=== PATIENT | female | born 1960 | race Caucasian/White ===

== ENCOUNTER 2024-05-06 10:47 | Outpatient (AMB) | payer BC, SELFPAY ==
--- NOTE | 2024-05-06 11:26 | A.OFFVIS_ITS ---
Vital Signs 05/06/24 11:28 Height 5 ft 9 in Weight 264 lb 8.875 oz BMI 39.1 BP 118/64 Blood Pressure Location Lt brachial Position Sitting Pulse 59 Pulse Source Pulse Oximeter Pulse Oximetry (%) 98 Oxygen Delivery Method Room Air Intake Visit Reasons: PSA Intake Note: Patient presents today for psoriatic arthritis. She was externally referred by PCP, Merry Sanders MD. She has a rash on her skin she is concerned about on hands and arms. Allergies clams, oysters Allergy (Unknown, Uncoded 05/06/24 11:30) Hives Clindamycin HCl Allergy (Unknown, Uncoded 05/06/24 11:30) hives Medication List - Last Reconciled 05/06/24 by Tee Fishman MD albuterol sulfate 90 mcg/actuation 2 inhalations inhalation Q4-6H PRN atorvastatin 10 mg PO DAILY cholecalciferol (vitamin D3) 1,250 mcg PO QWEEK cyclobenzaprine 10 mg PO TID diphenhydramine HCl (Benadryl) 25 mg PO TID PRN fluocinolone 0.01% 1 appl topical BID folic acid 1 mg PO DAILY inhalational spacing device (Aerochamber Mechanical Vent) As directed ondansetron HCl 4 mg PO Q8H semaglutide (weight loss) (Wegovy) 0.25 mg subcut QWEEK HPI HPI PSA: Details: Hx Psoriatic arthritis dx by Dr. Chairez. She has uncontrolled psoriasis- Scalp and inverse PsO. Pain in multiple joints. She has seen deformities develop in hands. She has difficulty walking. She had two incidents of slipping at work May 2023 and October 2023. Hx meniscus repair and cortisone injections in left knee. uses Brace and cane to assist with ambulation. She denies having joint swelling at this time. Denies dactylitis, iritis, IBD, SI joint pain including childhood back pain. She has history of cervical spinal stenosis and lumbar spinal stenosis with degenerative joint disease affecting lumbar spine. Denies any recent i nfections. She was diagnosed with psoriatic arthritis 10 years ago and reports that she had more joint pain at that time. The cold weather exacerbates all over joint pain resulting in reduced function and mobility. She is experiencing right knee pain, which has been chronic since her incidence of slipping out work. She has iced her knee and has used NSAIDs to help control pain. She is complaining about easily bruising on her arms. [facility] Medical History (Updated 05/06/24 @ 23:45 by Tee Fishman MD) Vitamin D deficiency Vaccine counseling Situational anxiety Severe obesity Psoriatic arthritis Obstructive sleep apnea of adult Muscle cramps Morbid obesity Migraines Meningioma Leg cramps Latent tuberculosis Hypercholesterolemia Healthcare maintenance Headache Head injury without fracture of skull Fall Cervical strain Elevated blood pressure reading Asthma Review of Systems Const All systems reviewed & are unremarkable except as noted in HPI and below Physical Exam Vital Signs: Last Vital Signs Pulse 59 05/06/24 11:28 BP 118/64 05/06/24 11:28 Pulse Ox 98 05/06/24 11:28 Oxygen Delivery Method Room Air 05/06/24 11:28 BMI result Body Mass Index 39.1 Const General: cooperative and healthy appearing Nutritional Appearance: obese Resp Effort & Inspection: normal respiratory effort Auscultation: clear to auscultation bilaterally Cardio Rate: regular rate Rhythm: regular rhythm Heart sounds: S1 normal heart sound present and S2 normal heart sound present Skin Other: Scalp psoriasis present. Psoriatic lesion on external right ear present. Extrem Other: Tender right 2nd MCP. Tender right CMC. Squaring of bilateral CMCs. No synovitis present. Excoriation and bruising on dorsal hands bilateral. Bruising on bilateral arms with bandages present. Good range of motion of upper extremity Tender right knee along joint line. Knee flexion bilateral 90 degrees. Good range of motion. Nontender MTPs. No dactylitis present. Assessment & Plan Assessment & Plan (1) Psoriatic arthritis: Comment: History of psoriatic arthritis. At this time there is no clinical evidence of active inflammatory arthritis on exam. She has clinical evidence of osteoarthritis in her hands. Code(s): L40.50 - Arthropathic psoriasis, unspecified Category: Medical Plan: I will obtain x-ray to evaluate further for radiographic changes suggestive of inflammatory arthritis versus degenerative joint disease. Baseline labs also have been ordered. Patient prefers to have labs and x-rays done in [place] so she does not miss work. Avoid oral NSAIDs in setting of bruising. Okay to take Tylenol OTC 650 mg 1-2 tablets every 8 hours as needed for pain Return to clinic in 1 month (2) Knee pain: Comment: Chronic right knee pain since 06/06/2023. We will evaluate further for joint pathology with x-ray. Code(s): M25.569 - Pain in unspecified knee Category: Medical Qualifiers: Chronicity: chronic Laterality: right Qualified Code(s): M25.561 - Pain in right knee; G89.29 - Other chronic pain Plan: X-ray has been ordered. Patient prefers to have x-ray done in [place]. Continue to wear knee brace. Hinged brace prescribed. Avoid oral NSAIDs for pain control in setting of easily bruising. Okay to use Tylenol 650 mg 1-2 tablets every 8 hours as needed for pain (3) Bruising: Comment: She reports that she has had history of high platelet count. No history of any myeloproliferative disease. Code(s): T14.8XXA - Other injury of unspecified body region, initial encounter Category: Medical Plan: We will obtain CBC for baseline (4) Psoriasis: Comment: Chronic, uncontrolled scalp psoriasis and inverse psoriasis. She will benefit from Dermatology consultation for management. Code(s): L40.9 - Psoriasis, unspecified Category: Medical Plan: Dermatology referral placed Plan . Orders: Orders XR foot LT min 3V Today L40.50 - Arthropathic psoriasis, unspecified XR knee RT 2V Today M25.569 - Pain in unspecified knee Aspartate Amino Transferase Today L40.50 - Arthropathic psoriasis, unspecified, M25.569 - Pain in unspecified knee, T14.8XXA - Other injury of unspecified body region, initial encounter C Reactive Protein Today L40.50 - Arthropathic psoriasis, unspecified, M25.569 - Pain in unspecified knee, T14.8XXA - Other injury of unspecified body region, initial encounter Creatinine Today L40.50 - Arthropathic psoriasis, unspecified, M25.569 - Pain in unspecified knee, T14.8XXA - Other injury of unspecified body region, initial encounter Erythrocyte Sedimentation Rate Today L40.50 - Arthropathic psoriasis, unspecified, M25.569 - Pain in unspecified knee, T14.8XXA - Other injury of unspecified body region, initial encounter XR hand LT min 3V Today L40.50 - Arthropathic psoriasis, unspecified, M25.569 - Pain in unspecified knee XR hand RT min 3V Today L40.50 - Arthropathic psoriasis, unspecified, M25.569 - Pain in unspecified knee XR foot RT min 3V Today L40.50 - Arthropathic psoriasis, unspecified, M25.569 - Pain in unspecified knee Alanine Aminotransferase Today L40.50 - Arthropathic psoriasis, unspecified, M25.569 - Pain in unspecified knee, T14.8XXA - Other injury of unspecified body region, initial encounter Complete Blood Count Auto Diff Today L40.50 - Arthropathic psoriasis, unspe cified, M25.569 - Pain in unspecified knee, T14.8XXA - Other injury of unspecified body region, initial encounter Referrals Dermatology Referral L40.9 - Psoriasis, unspecified Medications: New leg brace As directed 1 ea 0RF G89.29 - Other chronic pain, M25.561 - Pain in right knee Coding Level of Care Code New Pt Level 4 (59052) Diagnoses Psoriatic arthritis L40.50 Chronic pain of right knee M25.561; G89.29 Chronicity: chronic Laterality: right Bruising T14.8XXA Psoriasis L40.9
[2024-05-06 11:28] VITALS: BP 118/64; PULSE 59; O2SAT 98; BMI 39.1
== END 2024-05-06 12:29 | disposition home or self-care (01) ==
PROVIDERS: PCP Internal Medicine; Visit Provider Internal Medicine Rheumatology
DX: L40.50 Arthropathic psoriasis, unspecified (principal); M25.561 Pain in right knee; G89.29 Other chronic pain; T14.8XXA Other injury of unspecified body region, initial encounter; L40.9 Psoriasis, unspecified
CPT/HCPCS: 99204

== ENCOUNTER 2024-06-24 10:35 | Outpatient (AMB) | payer BC, SELFPAY ==
[2024-06-24 10:37] VITALS: BP 120/72; PULSE 63; O2SAT 95; BMI 39.0
--- NOTE | 2024-06-24 10:37 | A.OFFVIS_ITS ---
Vital Signs 06/24/24 10:37 Height 5 ft 9 in Weight 264 lb 5.348 oz BMI 39.0 BP 120/72 Blood Pressure Location Rt brachial Position Sitting Pulse 63 Pulse Source Pulse Oximeter Pulse Oximetry (%) 95 Oxygen Delivery Method Room Air Intake Visit Reasons: Follow Up 1mo Intake Note: was not able to get brace but will be getting later today Allergies clams, oysters Allergy (Unknown, Uncoded 05/06/24 11:30) Hives Clindamycin HCl Allergy (Unknown, Uncoded 05/06/24 11:30) hives HPI HPI Follow Up 1mo: Details: Her knee pain is 3/10. She has been to physical therapy in the past without benefit. She is tolerating pain. She is using marijuana when needed for pain control. She avoids using NSAIDs and Tylenol and only uses it when she needs it. [facility] Medical History Vitamin D deficiency Vaccine counseling Situational anxiety Severe obesity Psoriatic arthritis Obstructive sleep apnea of adult Muscle cramps Morbid obesity Migraines Meningioma Leg cramps Latent tuberculosis Hypercholesterolemia Healthcare maintenance Headache Head injury without fracture of skull Fall Cervical strain Elevated blood pressure reading Asthma Surgical History H/O left breast biopsy Review of Systems Const All systems reviewed & are unremarkable except as noted in HPI and below Physical Exam Vital Signs: Last Vital Signs Pulse 63 06/24/24 10:37 BP 120/72 06/24/24 10:37 Pulse Ox 95 06/24/24 10:37 Oxygen Delivery Method Room Air 06/24/24 10:37 BMI result Body Mass Index 39.0 Const General: cooperative and healthy appearing Nutritional Appearance: obese Resp Effort & Inspection: normal respiratory effort Auscultation: clear to auscultation bilaterally Cardio Rate: regular rate Rhythm: regular rhythm Heart sounds: S1 normal heart sound present and S2 normal heart sound present Skin Other: Scalp psoriasis present. Psoriatic lesion on external right ear present. Extrem Other: Squaring of bilateral CMCs. No synovitis present. Excoriation and bruising on dorsal hands bilateral. Bruising on bilateral arms. Good range of motion of upper extremity Tender right knee along joint line. Knee flexion bilateral 90 degrees. Nontender MTPs. No dactylitis present. Assessment & Plan Assessment & Plan (1) Generalized osteoarthritis: Comment: We discussed x-ray and labs. She has osteoarthritis in her hands, bilateral feet and mild osteoarthritis in right knee. She does not have clinical evidence of psoriatic arthritis. We discussed the full course of osteoarthritis. She has been experiencing bruising but her platelet count is normal. Code(s): M15.9 - Polyosteoarthritis, unspecified Category: Medical Plan: Encouraged weight loss She is receiving right knee brace today I recommended that she contact Dermatology for an appointment as referral was placed for management of psoriasis Return to clinic in 6 months or sooner if needed (2) Osteoarthritis of hands, bilateral: Comment: Pain is controlled. Code(s): M19.041 - Primary osteoarthritis, right hand; M19.042 - Primary osteoarthritis, left hand Category: Medical Qualifiers: Osteoarthritis type: primary Qualified Code(s): M19.041 - Primary osteoarthritis, right hand; M19.042 - Primary osteoarthritis, left hand Plan: Monitor clinically (3) Osteoarthritis of right knee: Comment: Pain is controlled. Limited range of motion. Mild osteoarthritis on x-ray. Code(s): M17.11 - Unilateral primary osteoarthritis, right knee Category: Medical Qualifiers: Osteoarthritis type: primary Qualified Code(s): M17.11 - Unilateral primary osteoarthritis, right knee Plan: Patient declined physical therapy She is receiving knee brace today Encouraged weight loss. She is on Wegovy. Return to clinic in 6 months or sooner if needed Coding Level of Care Code Est Pt Level 4 (86444) Complex EM visit Add On G2211 Diagnoses Generalized osteoarthritis M15.9 Primary osteoarthritis of both hands M19.041; M19.042 Osteoarthritis type: primary Primary osteoarthritis of right knee M17.11 Osteoarthritis type: primary
== END 2024-06-24 11:12 | disposition home or self-care (01) ==
PROVIDERS: PCP Internal Medicine; Visit Provider Internal Medicine Rheumatology
DX: M19.041 Primary osteoarthritis, right hand (principal); M19.042 Primary osteoarthritis, left hand; M17.11 Unilateral primary osteoarthritis, right knee
CPT/HCPCS: 99214